=== PATIENT | female | born 1965 | race Caucasian/White ===

== ENCOUNTER 2017-01-10 14:36 | Emergency (ER) | payer BC ==
[2017-01-10] MEDS ORDERED: SODIUM CHLORIDE 0.9% 1,000 ML IV STA (15:17)
[2017-01-10] MEDS ORDERED: ENALAPRILAT 1.25 MG/ML 1 ML VIAL IVP STA (15:18)
--- NOTE | 2017-01-10 15:39 | ED ---
General Adult HPI - General Chief complaint: Recheck/Abnormal Lab/Rx Stated complaint: Hypertension Time Seen by Provider: 01/10/17 15:10 Source: patient, RN notes reviewed Mode of arrival: ambulatory Limitations: no limitations - History of Present Illness Initial comments: 51-year-old female presents to the emergency Department chief complaint of hypertension. Patient states that she bought a blood pressure cuff ovary was on and she was taking her blood pressure was reading high 200s over 100s. She contacted her doctor and they referred her here. Patient states she doesn't have history of hypertension. Patient states she has been 10 pounds over the last year. She is adopted so she does not know her family history. Patient states that she was concerned due to her continued blood pressure so she thought that she should be evaluated. Patient states she has no pain no headache no chest pain no shortness of breath and changes in bowel or bladder habits. - Related Data Previous Rx's Medication Instructions Recorded amLODIPine BESYLATE [Norvasc] 5 mg PO DAILY #30 tablet 01/10/17 Allergies Allergy/AdvReac Type Severity Reaction Status Date / Time No Known Allergies Allergy Verified 01/10/17 15:43 Review of Systems ROS Statement: Those systems with pertinent positive or pertinent negative responses have been documented in the HPI. ROS Other: All systems not noted in ROS Statement are negative. Past Medical History Past Medical History: No Reported History History of Any Multi-Drug Resistant Organisms: None Reported Past Surgical History: Joint Replacement Additional Past Surgical History / Comment(s): D&C Past Psychological History: No Psychological Hx Reported Smoking Status: Never smoker Past Alcohol Use History: Occasional Past Drug Use History: None Reported General Exam - General Exam Comments Initial Comments: General: The patient is awake and alert, in no distress, and does not appear acutely ill. Eye: Pupils are equal, round and reactive to light, extra-ocular movements are intact; there is normal conjunctiva bilaterally. No signs of icterus. Ears, nose, mouth and throat: There are moist mucous membranes. Neck: The neck is supple, there is no tenderness. Cardiovascular: There is a regular rate and rhythm. No murmur, rub or gallop is appreciated. Respiratory: Lungs are clear to auscultation, respirations are non-labored, breath sounds are equal. No wheezes, stridor, rales, or rhonchi. Gastrointestinal: Soft, non-distended, non-tender abdomen without masses or organomegaly noted. There is no rebound or guarding present. No CVA tenderness. Bowel sounds are unremarkable. Back: There is no tenderness to palpation in the midline. There is no obvious deformity. No rashes noted. Musculoskeletal: Normal ROM, no tenderness, There is no pedal edema. There is no calf tenderness or swelling. Sensation intact. Pulses equal bilaterally 2+. Neurological: CN II-XII intact, There are no obvious motor or sensory deficits. Coordination appears grossly intact. Speech is normal. Skin: Skin is warm and dry and no rashes or lesions are noted. Psychiatric: Cooperative, appropriate mood & affect, normal judgment. Limitations: no limitations Course Vital Signs 01/10/17 01/10/17 01/10/17 14:39 15:44 16:18 Temperature 98.5 F Pulse Rate 79 81 78 Respiratory 18 16 16 Rate Blood Pressure 206/98 176/95 157/81 O2 Sat by Pulse 99 99 100 Oximetry EKG Findings - EKG Comments: EKG Findings:: normal sinus rhythm 73 bpm, normal axis, no atopy, no S-T depressions or elevations, Medical Decision Making - Medical Decision Making 51 -year-old female presents emergency department with a chief complaint of hypertension. At this time blood work has been reviewed as well as EKG. This time blood pressure has lowered without any intervention. This time we discussed hypertension. We did discuss the risks. We discussed follow-up return parameters. We'll start on Norvasc. We discussed all of her questions. She stated she understood and she is in agreement plan. She'll be discharged. Patient is a found to have an elevated blood pressure on this ER visit. At this time patient is informed to follow-up with his family care doctor for continued monitoring. - Lab Data Result diagrams: 01/10/17 15:24 01/10/17 15:24 Lab Results 01/10/17 01/10/17 01/10/17 Range/Units 15:24 15:24 16:15 WBC 6.7 (3.8-10.6) k/uL RBC 4.09 (3.80-5.40) m/uL Hgb 12.4 (11.4-16.0) gm/dL Hct 38.2 (34.0-46.0) % MCV 93.4 (80.0-100.0) fL MCH 30.3 (25.0-35.0) pg MCHC 32.4 (31.0-37.0) g/dL RDW 14.4 (11.5-15.5) % Plt Count 334 (150-450) k/uL Neutrophils % 66 % Lymphocytes % 22 % Monocytes % 5 % Eosinophils % 4 % Basophils % 1 % Neutrophils # 4.4 (1.3-7.7) k/uL Lymphocytes # 1.5 (1.0-4.8) k/uL Monocytes # 0.3 (0-1.0) k/uL Eosinophils # 0.3 (0-0.7) k/uL Basophils # 0.1 (0-0.2) k/uL Sodium 139 (137-145) mmol/L Potassium 4.1 (3.5-5.1) mmol/L Chloride 104 (98-107) mmol/L Carbon Dioxide 25 (22-30) mmol/L Anion Gap 10 mmol/L BUN 14 (7-17) mg/dL Creatinine 0.65 (0.52-1.04) mg/dL Est GFR (MDRD) Af Amer >60 (>60 ml/min/1.73 sqM) Est GFR (MDRD) Non-Af >60 (>60 ml/min/1.73 sqM) Glucose 80 (74-99) mg/dL Calcium 9.6 (8.4-10.2) mg/dL Total Bilirubin 0.4 (0.2-1.3) mg/dL AST 22 (14-36) U/L ALT 32 (9-52) U/L Alkaline Phosphatase 69 (38-126) U/L Total Protein 7.8 (6.3-8.2) g/dL Albumin 4.5 (3.5-5.0) g/dL Urine Color Light Yellow Urine Appearance Clear (Clear) Urine pH 7.0 (5.0-8.0) Ur Specific [place] 1.007 (1.001-1.035) Urine Protein Negative (Negative) Urine Glucose (UA) Negative (Negative) Urine Ketones Negative (Negative) Urine Blood Small H (Negative) Urine Nitrite Negative (Negative) Urine Bilirubin Negative (Negative) Urine Urobilinogen <2.0 (<2.0) mg/dL Ur Leukocyte Esterase Negative (Negative) Urine RBC 1 (0-5) /hpf Urine WBC <1 (0-5) /hpf Ur Squamous Epith Cells 1 (0-4) /hpf Urine Bacteria Rare H (None) /hpf Urine Mucus Rare H (None) /hpf Disposition Clinical Impression: Hypertension Disposition: HOME SELF-CARE Condition: Stable Instructions: Hypertension (ED) Additional Instructions: Please use medication as discussed. Please follow up with family doctor if symptoms have not improved over the next two days. Please return to the emergency room if your symptoms increase or worsen or for any other concerns. Prescriptions: amLODIPine BESYLATE [Norvasc] 5 mg PO DAILY #30 tablet Referrals: Maya Terry MD [Primary Care Provider] - 1-2 days Time of Disposition: 16:51
[2017-01-10 15:51] LABS: Basophils # (A) 0.1 k/uL (0-0.2); Basophils % (A) 1 %; CHCM 32.2; Eosinophils # (A) 0.3 k/uL (0-0.7); Eosinophils % (A) 4 %; HCT 38.2 % (34.0-46.0); HDW 2.37; HGB 12.4 gm/dL (11.4-16.0); Luc # (Auto) 0.15; Luc % (Auto) 2; Lymphocytes # (A) 1.5 k/uL (1.0-4.8); Lymphocytes % (A) 22 %; MCH 30.3 pg (25.0-35.0); MCHC 32.4 g/dL (31.0-37.0); MCV 93.4 fL (80.0-100.0); Mean Platelet Volume 6.6; Monocytes # (A) 0.3 k/uL (0-1.0); Monocytes % (A) 5 %; Neutrophils # (A) 4.4 k/uL (1.3-7.7); Neutrophils % (A) 66 %; RBC 4.09 m/uL (3.80-5.40); RDW 14.4 % (11.5-15.5); WBC 6.7 k/uL (3.8-10.6); WBC (Perox) 6.91
[2017-01-10 15:57] LABS: ALT 32 U/L (9-52); AST 22 U/L (14-36); Alkaline Phosphatase 69 U/L (38-126); Anion Gap 10 mmol/L; Blood Urea Nitrogen 14 mg/dL (7-17); Calcium 9.6 mg/dL (8.4-10.2); Carbon Dioxide 25 mmol/L (22-30); Chloride 104 mmol/L (98-107); Glucose 80 mg/dL (74-99); Non-African American GFR(MDRD) >60 (>60 ml/min/1.73 sqM); Potassium 4.1 mmol/L (3.5-5.1); Sodium 139 mmol/L (137-145); Total Bilirubin 0.4 mg/dL (0.2-1.3); Total Protein 7.8 g/dL (6.3-8.2)
[2017-01-10 16:33] LABS: Appearance,Urine Clear (Clear); Bacteria,Urine Rare /hpf; Bilirubin,Urine Negative (Negative); Glucose,Urine (UA) Negative (Negative); Ketones,Urine Negative (Negative); Leukocyte Esterase,Urine Negative (Negative); Mucus,Urine Rare /hpf; Nitrite,Urine Negative (Negative); Particle Count 929; Protein,Urine Negative (Negative); RBC,Urine 1 /hpf (0-5); Specific Gravity,Urine 1.007 (1.001-1.035); Squamous Epithelial Cell,Urine 1 /hpf (0-4); UA Billing (MACRO vs. MICRO) MICRO; Urobilinogen,Urine <2.0 mg/dL (<2.0); WBC,Urine <1 /hpf (0-5)
[2017-01-10 17:04] VITALS: BP 141/90; PULSE 75; RESP 18; TEMP 97.8
== END 2017-01-10 17:04 | disposition home or self-care (01) ==
LOC: EC 14:36
DX: I10 Essential (primary) hypertension (principal)
CPT/HCPCS: 36415; 80053; 81001; 85025; 93005; 96360; 99283

== ENCOUNTER 2018-03-10 13:34 | Emergency (ER) | payer BC, OTHER ==
[2018-03-10 13:51] VITALS: RESP 18; TEMP 98.1
[2018-03-10] MEDS ORDERED: DIPH,PERTUS(ACELL)TETVAC-LF 0.5 ML VIAL IM ONE (14:08)
--- NOTE | 2018-03-10 14:17 | ED ---
Head Injury HPI - General Chief complaint: Trauma Stated complaint: lac on forehead Time Seen by Provider: 03/10/18 13:45 Source: patient, RN notes reviewed Mode of arrival: ambulatory Limitations: no limitations - History of Present Illness Initial comments: This is a 53-year-old female history of hypertension who states she was caught between a 1700 pound horse and the wall and with evidence of a wall. Complains of right-sided temporal frontal scalp area pain moderate in severity, no blurry vision no nausea vomiting loss of consciousness no neck or back pain no loss of bladder or bowel movement. She was brought in by EMS. She's not sure when her last tetanus shot was. No other complaints or modifying factors MD Complaint: head injury, head pain - Related Data Home Medications Medication Instructions Recorded Confirmed Venlafaxine HCl ER [Effexor Xr] 37.5 mg PO DAILY 03/10/18 03/10/18 Previous Rx's Medication Instructions Recorded amLODIPine BESYLATE [Norvasc] 5 mg PO DAILY #30 tablet 01/10/17 Allergies/Adverse reactions: Allergies Allergy/AdvReac Type Severity Reaction Status Date / Time No Known Allergies Allergy Verified 03/10/18 14:56 Review of Systems ROS Statement: Those systems with pertinent positive or pertinent negative responses have been documented in the HPI. ROS Other: All systems not noted in ROS Statement are negative. Past Medical History Past Medical History: Hypertension History of Any Multi-Drug Resistant Organisms: None Reported Past Surgical History: Joint Replacement Additional Past Surgical History / Comment(s): D&C Past Psychological History: No Psychological Hx Reported Smoking Status: Never smoker Past Alcohol Use History: Occasional Past Drug Use History: None Reported General Exam - General Exam Comments Initial Comments: This is a well-developed well-nourished awake alert oriented 3 female she has a Ivelisse Coma Scale of 15 Limitations: no limitations General appearance: alert, anxious, other (There is approximately 5 cm curved shaped laceration to the right frontal and forehead scalp area. Minimal bleeding there is tenderness palpation no definite step-off or crepitation. No foreign body seen. ) Head exam: Present: atraumatic, normocephalic, normal inspection Eye exam: Present: normal appearance, PERRL, EOMI. Absent: scleral icterus, conjunctival injection, periorbital swelling ENT exam: Present: normal exam, mucous membranes moist Neck exam: Present: normal inspection. Absent: tenderness, meningismus, lymphadenopathy Respiratory exam: Present: normal lung sounds bilaterally. Absent: respiratory distress, wheezes, rales, rhonchi, stridor Cardiovascular Exam: Present: regular rate, normal rhythm, normal heart sounds. Absent: systolic murmur, diastolic murmur, rubs, gallop, clicks GI/Abdominal exam: Present: soft, normal bowel sounds. Absent: distended, tenderness, guarding, rebound, rigid Extremities exam: Present: normal inspection, full ROM, normal capillary refill. Absent: tenderness, pedal edema, joint swelling, calf tenderness Back exam: Present: normal inspection Neurological exam: Present: alert, oriented X3, CN II-XII intact Psychiatric exam: Present: normal affect, normal mood Skin exam: Present: warm, dry, intact, normal color. Absent: rash Course Vital Signs 03/10/18 03/10/18 13:39 15:11 Temperature 98.1 F Pulse Rate 98 88 Pulse Rate [ 88 Digital Program Manager ] Respiratory 18 18 Rate Blood Pressure 175/113 154/100 Blood Pressure 154/100 [Left Arm Sitting] O2 Sat by Pulse 98 99 Oximetry - Reevaluation(s) Reevaluation #1: 03/10/18 16:25 I did review the the CT report no acute findings. Medical Decision Making - Medical Decision Making I did discuss the findings the patient and her . The patient's laceration was repaired by my physician religious assistant is well approximated. Patient will be discharged. - Radiology Data Radiology results: report reviewed (I did review the imaging and report no acute findings.), image reviewed Disposition Clinical Impression: Laceration, Laceration of forehead, Scalp contusion Disposition: HOME SELF-CARE Condition: Good Instructions: Laceration (ED), Scalp Contusion in Adults (ED) Additional Instructions: Patient to adhere to previously discussed treatment plan and will take medication(s) as directed. Patient to follow up with PCP in 1-2 days. Patient to return to ED if symptoms do not improve. Is patient prescribed a controlled substance at d/c from ED?: No Referrals: Maya Terry MD [Primary Care Provider] - 1-2 days
--- NOTE | 2018-03-10 15:11 | CT ---
EXAMINATION TYPE: CT brain wo con DATE OF EXAM: 03/10/2018 COMPARISON: None HISTORY: Right frontal injury/laceration. Patient pinned to horse trailer by horse. No LOC. CT DLP: 1051.4 mGycm Automated exposure control for dose reduction was used. FINDINGS: There is no hemorrhage or hydrocephalus. Calvarium is intact, no depressed skull fracture. Paranasal sinuses are well aerated. Orbits show symmetric appearance. IMPRESSION: NO ACUTE ABNORMALITY.
[2018-03-10 15:13] VITALS: BP 154/100; PULSE 88
--- NOTE | 2018-03-10 16:21 | ED ---
Medical Decision Making - Medical Decision Making 9 simple interrupted 5-0 sutures placed in patient's right temporal region, 1% lidocaine used for anesthetic, patient tired procedure well, no palpitations. Patient to have sutures removed in 5 days. Patient states that her tetanus is updated today. Disposition Clinical Impression: Laceration Disposition: HOME SELF-CARE Condition: Good Instructions: Laceration (ED) Additional Instructions: Patient to adhere to previously discussed treatment plan and will take medication(s) as directed. Patient to follow up with PCP in 1-2 days. Patient to return to ED if symptoms do not improve. Is patient prescribed a controlled substance at d/c from ED?: No Referrals: Maya Terry MD [Primary Care Provider] - 1-2 days Time of Disposition: 16:21 Procedures - Laceration Laceration #1 Consent Obtained: verbal consent Time Out Performed: Yes Indication: laceration Site: scalp Size (cm): 4 Description: linear Depth: simple, single layer Anesthetic Used: lidocaine 1% Anesthesia Technique: local infiltration Amount (mls): 5 Pre-repair: wound explored, irrigated extensively Type of Sutures: nylon Size of Sutures: 5-0 Number of Sutures: 9 Technique: simple, interrupted Patient Tolerated Procedure: well
== END 2018-03-10 16:35 | disposition home or self-care (01) ==
LOC: EC 13:34
DX: S01.81XA Laceration without foreign body of other part of head, initial encounter (principal); Z23 Encounter for immunization; I10 Essential (primary) hypertension; Z79.899 Other long term (current) drug therapy; W55.19XA Other contact with horse, initial encounter
CPT/HCPCS: 12013; 70450; 90471; 90715; 99283

== ENCOUNTER → 2018-08-02 | Outpatient (CLI) | payer OTHER | END | disposition home or self-care (01) | LOC: LABWHC1 12:18 | PROVIDERS: ATTEND Obstetrics & Gynecology | DX: R53.83 Other fatigue (principal); Z78.0 Asymptomatic menopausal state | CPT/HCPCS: 36415; 83001; 84443; 84481 ==

== ENCOUNTER → 2020-06-24 | Outpatient (CLI) | payer OTHER ==
--- NOTE | 2020-06-25 09:34 | MM ---
Reason for exam: additional evaluation requested from prior study. Last mammogram was performed 7 months ago. History: Patient is postmenopausal. Cyst aspiration of the right breast, 2002. Stereotactic core biopsy of the left breast. Took hormonal contraceptives for 2 years beginning at age 17. Physical Findings: Nurse did not find any significant physical abnormalities on exam. MG 3D Diag Mammo W/Cad LT CC and MLO view(s) were taken of the left breast. Prior study comparison: November 27, 2019, mammogram. June 05, 2018, mammogram. May 08, 2017, mammogram. The breast tissue is heterogeneously dense. This may lower the sensitivity of mammography. Previous mammotome biopsy in the left breast. No significant new findings when compared with previous films. These results were verbally communicated with the patient and result sheet given to the patient on 06/24/20. ASSESSMENT: Incomplete: need additional imaging evaluation, BI-RAD 0 RECOMMENDATION: Ultrasound of the left breast.
--- NOTE | 2020-06-25 09:35 | USB ---
Reason for exam: additional evaluation requested from abnormal screening. History: Patient is postmenopausal. Cyst aspiration of the right breast, 2002. Stereotactic core biopsy of the left breast. Took hormonal contraceptives for 2 years beginning at age 17. US Breast LT Left complete breast ultrasound includes all four quadrants, the retroareolar region and axilla. Finding demonstrates a 0.5 x 0.3 x 0.6cm oval, cystic lesion at 3 o'clock and a 0.9 x 0.6 x 0.9cm oval, solid lesion at 10 o'clock, smaller than comparison, would correlate with ribbon clips. These results were verbally communicated with the patient and result sheet given to the patient on 06/24/20. ASSESSMENT: Benign, BI-RAD 2 RECOMMENDATION: Routine screening mammogram of both breasts in 6 months. Back on schedule.
== END | disposition home or self-care (01) ==
LOC: RADMAMWWP 14:54
PROVIDERS: ATTEND Surgery
DX: N61.0 Mastitis without abscess (principal)
CPT/HCPCS: 77061; 77065